=== PATIENT | female | born 1990 | race African-American/Black ===

== ENCOUNTER 2021-08-26 03:42 | Emergency (ER) | payer OTHER ==
[2021-08-26 03:58] VITALS: BP 125/85; PULSE 74; TEMP 98.1; BMI 33.9
[2021-08-26] MEDS ORDERED: methylPREDNISolone NA SUCC 125 MG/2 ML VIAL IM ONE (04:02)
[2021-08-26] MEDS ORDERED: methylPREDNISolone NA SUCC 125 MG/2 ML VIAL ONE (04:02)
== END 2021-08-26 04:13 | disposition home or self-care (01) ==
LOC: FER 03:42
PROC: 3E023GC Introduction of Other Therapeutic Substance into Muscle, Percutaneous Approach (ICD-10-PCS; principal; 2021-08-26)
DX: L50.0 Allergic urticaria (principal); R60.0 Localized edema; T78.40XA Allergy, unspecified, initial encounter
CPT/HCPCS: 99284-25

== ENCOUNTER 2024-06-25 14:06 | Emergency (ER) | payer OTHER ==
[2024-06-25 14:12] VITALS: BP 115/78; PULSE 87; RESP 16; TEMP 98.2; BMI 30.2
[2024-06-25] MEDS ORDERED: IBUPROFEN 600 MG TABLET (FP) PO ONE (15:19)
[2024-06-25] MEDS: IBUPROFEN 600 MG TABLET (FP) PO ONE (15:20)
[2024-06-25] MEDS ORDERED: LIDOCAINE 5% TOPICAL PATCH ONE ×2 (15:30→15:52)
[2024-06-25] MEDS: LIDOCAINE 5% TOPICAL PATCH TP ONE ×2 (15:32→15:52)
[2024-06-25] MEDS ORDERED: LIDOCAINE PATCH REMOVAL MC SCH ×2 (22:00)
== END 2024-06-25 15:57 | disposition home or self-care (01) ==
LOC: FER 14:06
DX: O09.512 Supervision of elderly primigravida, second trimester (principal); O9A.212 Injury, poisoning and certain other consequences of external causes complicating pregnancy, second trimester; S69.91XA Unspecified injury of right wrist, hand and finger(s), initial encounter; V49.40XA Driver injured in collision with unspecified motor vehicles in traffic accident, initial encounter
CPT/HCPCS: 73110-TC-RT-FY; 99283-25